=== PATIENT | male | born 1985 | race Caucasian/White ===

== ENCOUNTER 2022-03-26 23:03 | Emergency (ER) | payer SELFPAY ==
[~2022-03-26] VITALS: Ht 177.8 cm; Wt 88.0 kg
[2022-03-26 23:03] VITALS: BP_SYST 156
--- NOTE | 2022-03-26 23:03 | NUR ---
Placed in room 01 . Placed on certified orthoptist, blood pressure machine and pulse oximeter. To gown for exam. Side rails up. Report given to NAZIA Trammell
--- NOTE | 2022-03-26 23:10 | NUR ---
bib ems from home w c/o fentanyl withdrawl, last use 2 days ago per ems. per ems pt has been screaming the whole way in the amb to the hospital, [facility] cont [facility]. pt states his whole body hurts.
[2022-03-26] MEDS ORDERED: NACL 0.9% 1,000 ML IV ONE (23:15)
[2022-03-26] MEDS ORDERED: cloNIDine HCL 0.1 MG TABLET PO ONE (23:15)
[2022-03-26] MEDS ORDERED: MIDAZOLAM HCL 5 MG/5 ML VIAL ONE (23:27)
[2022-03-26] MEDS ORDERED: MIDAZOLAM HCL 5 MG/5 ML VIAL IVP ONE ×2 (23:30)
--- NOTE | 2022-03-26 23:40 | NUR ---
pt is extreamly restless, pt continues to scream loudly and atempts to get out of bed. brother is at bedside attempting to calm patient.
[2022-03-26] MEDS ORDERED: HALOPERIDOL LACTATE 5 MG/ML VIAL IM ONE (23:45)
[2022-03-26 23:51] LABS: BASOPHILS % (AUTO) 0.6 % (0.0-2.0); EOSINOPHILS % (AUTO) 0.4 % (0.0-4.0); HEMATOCRIT 47.5 % (36-54); LYMPHOCYTES # (AUTO) 1.8 K/uL (1.0-5.5); LYMPHOCYTES % (AUTO) 23.2 % (20.5-51.5); MEAN CORPUSCULAR VOLUME 80 fL (79.0-98.0); MONOCYTES # (AUTO) 0.4 K/uL (0.0-1.0); MONOCYTES % (AUTO) 4.8 % (1.7-9.3); NEUTROPHILS # (AUTO) 5.6 K/uL (1.8-7.7); PLATELET COUNT (AUTO) 364 K/uL (130-430); RED CELL DISTRIBUTION WIDTH 13.4 % (9.0-15.0); WHITE BLOOD COUNT (AUTO) 7.9 K/uL (4.8-10.8)
[2022-03-26 23:53] LABS: CALCIUM 9.9 mg/dL (8.4-11.0); CREATININE 1.01 mg/dL (0.55-1.30); POTASSIUM 5.7 mmol/L (3.5-5.1)
[2022-03-26 23:59] LABS: ALBUMIN 3.2 g/dL (3.4-4.8); TOTAL BILIRUBIN 0.4 mg/dL (0.0-1.0)
[2022-03-27] MEDS ORDERED: DIPHENHYDRAMINE INJ 50 MG/ML VIAL IM ONE
[2022-03-27] MEDS ORDERED: MORPHINE 4 MG INJ. 4 MG/ML VIAL IVP ONE
[2022-03-27] MEDS ORDERED: NACL 0.9% 1,000 ML IV ONE (00:45)
[2022-03-27] MEDS ORDERED: KETAMINE HCL 500 MG/10 ML VIAL IVP ONE (01:15)
[2022-03-27 01:16] LABS: CALCIUM 8.8 mg/dL (8.4-11.0); CREATININE 1.06 mg/dL (0.55-1.30); POTASSIUM 3.6 mmol/L (3.5-5.1)
[2022-03-27 01:21] LABS: ALBUMIN 2.9 g/dL (3.4-4.8); TOTAL BILIRUBIN 0.2 mg/dL (0.0-1.0)
[2022-03-27 01:30] LABS: BENZODIAZEPINE, URINE POSITIVE (NEG <=150); METHAMPHETAMINES SCREEN,URINE POSITIVE (NEG <=500); OPIATE, URINE POSITIVE (NEG <=100); URINE AMPHETAMINE POSITIVE (NEG <=500)
[2022-03-27 01:31] LABS: BARBITURATE, URINE NEGATIVE (NEG <=200); CANNABINOID, URINE NEGATIVE (NEG <=50); COCAINE, URINE NEGATIVE (NEG <=150); PHENCYCLIDINE SCREEN,URINE NEGATIVE (NEG <=25); UR TRICYCLIC ANTIDEPRESSANTS NEGATIVE (NEG <=300); URINE METHADONE NEGATIVE (NEG <=200); URINE OXYCODONE SCREEN POSITIVE (NEG <=100); URINE PROPOXYPHENE SCREEN NEGATIVE (NEG <=300)
[2022-03-27] MEDS ORDERED: HYDROmorphone 1 MG/ML INJ. CARTRIDGE IVP ONE (01:45)
--- NOTE | 2022-03-27 01:56 | NUR ---
lower extremity restraints removed. patient agrees not to attemt to get out of bed.
[2022-03-27 01:58] LABS: CKMB RELATIVE INDEX 1.9 (0.0-2.9); CREATINE KINASE MB 5.9 ng/mL (0-3.6)
--- NOTE | 2022-03-27 01:59 | NUR ---
upper restraints removed. patient agrees to listen to requests and remains cooperative. brother at bedside.
--- NOTE | 2022-03-27 02:14 | NUR ---
patient pulled out iv to right fa. md notified. pressure bandage applied
[2022-03-27 03:25] VITALS: BP_SYST 139
--- NOTE | 2022-03-27 03:25 | NUR ---
Patient given written and verbal discharge instructions and verbalizes understanding. ER MD discussed with patient the results and treatment provided. Patient in stable condition. ID arm band removed. IV catheter removed intact and dressing applied, no active bleeding. Rx of given. Patient educated on pain management and to follow up with PMD. Pain Scale 5/10. Opportunity for questions provided and answered. Medication side effect fact sheet provided.
== END 2022-03-27 03:25 | disposition home or self-care (01) ==
LOC: SED 23:03
DX: F11.23 Opioid dependence with withdrawal (principal); F19.10 Other psychoactive substance abuse, uncomplicated; Z79.899 Other long term (current) drug therapy
CPT/HCPCS: 99291; 96374; 96361 ×2; 80307; 82550; 82553; 85025; 36415; 96372 ×2; 96375; 80053; J1200; J1630; J2250; J7030 ×2; J1170; J2270